=== PATIENT | female | born 1955 | race Caucasian/White ===

== ENCOUNTER → 2017-01-07 | Outpatient (CLI) | payer OTHER | LOC: CT 12-25 15:30 → KOH-I 09:04 → CT 09:04 | DX: R91.1 Solitary pulmonary nodule (principal); R91.8 Other nonspecific abnormal finding of lung field; R59.0 Localized enlarged lymph nodes | CPT/HCPCS: 71250 ==

== ENCOUNTER → 2017-03-08 | Outpatient (CLI) | payer OTHER | LOC: MRI 01-28 09:00 | DX: R16.0 Hepatomegaly, not elsewhere classified (principal); R93.8 Abnormal findings on diagnostic imaging of other specified body structures; R22.1 Localized swelling, mass and lump, neck; R91.1 Solitary pulmonary nodule | CPT/HCPCS: 74183; A9577; J7050 ==